=== PATIENT | male | born 1945 | race Caucasian/White ===

== ENCOUNTER 2024-02-18 06:12 | Day surgery (SDC) | payer OTHER, SELFPAY ==
[2024-02-16 08:55] VITALS: BMI 42.1
[2024-02-16 09:30] LABS: % Basophils 1.1 % (0-2); % Eosinophils 7.6 % (0-6); % Immature Granulocytes 0.2 % (0-0.5); % Lymphocytes 22.3 % (20.5-51.1); % Neutrophils 58.8 % (42.2-75.2); Absolute Basophils 0.1 10^3/uL (0-0.2); Absolute Eosinophils 0.5 10^3/uL (0-0.7); Absolute Lymphocytes 1.4 10^3/uL (1.2-3.4); Absolute Monocytes 0.6 10^3/uL (0.1-0.6); Absolute Neutrophils 3.8 10^3/uL (1.4-6.5); Hemoglobin 12.8 g/dL (13.0-18.0); Mean Corp Hgb Conc. 33.7 g/dL (33.0-37.0); Mean Corpuscular Hgb 31.9 pg (27.0-31.0); Mean Corpuscular Volume 94.8 fL (80.0-94.0); Mean Platelet Volume 12.7 fL (7.4-10.4); Nucleated Red Blood Cells % 0 % (-); Platelet Count 121 10^3/uL (130-400); Red Blood Cell Count 4.01 10^6/uL (4.70-6.10); Red Cell Dist. Width 13.6 % (11.5-14.5); White Blood Cell Count 6.4 10^3/uL (4.8-10.8)
[2024-02-16 10:48] LABS: ALT (SGPT) 27 U/L (0-50); AST (SGOT) 39 U/L (17-59); Albumin 3.9 g/dl (3.5-5.0); Alkaline Phosphatase 72 U/L (38-126); Blood Urea Nitrogen 21 mg/dl (9-20); Calcium 9.4 mg/dl (8.4-10.2); Carbon Dioxide 30 mmol/L (22-30); Chloride 104 mmol/L (98-107); Estimated Creatinine Clearance 80 ml/min; Glucose 114 mg/dl (70-99); Sodium 138 mmol/L (135-145); Total Bilirubin 0.8 mg/dl (0.2-1.3); Total Protein 6.7 g/dl (6.3-8.2); eGFR > 60.00
--- NOTE | 2024-02-17 13:59 | CONSULT.STRU ---
Consultation
-
Date/Time Consultation Requested: 02/18/2024
Date/Time Consultation Performed: 02/18/2024
Requesting Provider: Terrence Guerra MD
Performing Provider: LESTER John
Reason for Consultation: /TAVR
Patient History
Physicians
Family Physician: Moreno Nash MD
Outpatient Membership Sales Manager: Melquiades Ortega MD
Primary Membership Sales Manager: Melquiades Ortega MD
History of Present Illness
Mr. Bruno is a very pleasant active 79 yom that presents to the catheterization lab for coronary assessment prior to AVR. His cath from 12/2020 confirmed presence of moderate mLAD disease stenosis with mild to moderate disease elsewhere. Patient
states he does get substernal CP and SOB with exertion. Cath from today (02/18/2024) shows Single-vessel CAD involving the LAD, Both IFR and FFR were in the flow-limiting range prompting placement of a 3.5 x 12 mid LAD stent within the remotely
stented segment. His echocardiogram from 12/14/2023 is notable for EF 55-60%, moderate MAC, trivial-mild MR, AV P/M 66/39, BRITANY 0.9, pk shadi 3.87, RVSP 33, trivial TR. Discussed the pathophysiology and treatment options of aortic stenosis including SAVR
and TAVR. Explained the evaluation process comprising of CT scan, CT surgical consult, dental clearance and a heart team discussion. TAVR booklet, prescriptions, appointments and contact information given to patient. Allowed for and answered
questions at bedside.
Past Medical History
Past Medical History: Arrhythmias (Persistent afib (C2V: 3)), HTN, FL, Valvular Disease (Aortic stenosis) and Other (venous insufficiency, hyperlipidemia, LLE superficial thrombus)
angioplasty/stent to LAD following FL ( 12/2008), LLE fracture complicated by DVT (2001)
Past Surgical History
Past Surgical History: Orthopedic ((L) THR, bilateral TKR) and Other (vasectomy, bilateral cataract extractins)
Dental History
[facility] (patient states he is utd--dental clearance form faxed)
Family History
Mother: at Age (81) and Cause of (valve disease)
Father: at Age (93)
Social History
Alcohol: Daily (up to 6 beers daily )
Drug: None
Tobacco: Former Smoker
Personal:
Living: Alone
Employment: Employed (works Maintenance at [employer])
Allergies
Allergy/AdvReac Type Severity Reaction Status Date / Time
No Known Allergies Allergy Unverified 02/15/24 08:25
Home Medications
�Medication �Instructions �Recorded �Confirmed �Type
cholecalciferol (vitamin D3) 25 25 mcg PO BID 02/15/24 02/15/24 History
mcg (1,000 unit) tablet (Vitamin
D3)
isosorbide mononitrate 60 mg 60 mg PO DAILY 02/15/24 02/15/24 History
tablet,extended release 24 hr
multivitamin 1 tab PO DAILY 02/15/24 02/15/24 History
nadolol 20 mg tablet 30 mg PO BID 02/15/24 02/15/24 History
rivaroxaban 20 mg tablet (Xarelto) 20 mg PO QPM 02/15/24 02/15/24 History
rosuvastatin 20 mg tablet 20 mg PO DAILY 02/15/24 02/15/24 History
STS%
STS %: 4.53
Review of Systems
-
History Source: Patient
General: Reports Weight Gain and Fatigue
HEENT: Reports No Symptoms
Respiratory: Reports SOB and OCONNOR
Cardiac: Reports Chest Pain
Abdomen/GI: Reports No Symptoms
: Reports No Symptoms
Musculoskeletal: Reports No Symptoms
Skin: Reports No Symptoms
Neurological: Reports No Symptoms
Vascular: Reports No Symptoms
Physical Exam
Vital Signs
Actual Weight 125.6 kg 02/16/24 08:55
Body Mass Index (BMI) 42.1 02/16/24 08:55
Labs
02/16/24 09:03
02/16/24 09:03
Diagnostic Studies
Echocardiogram 12/14/2023:
CONCLUSIONS
1. Left atrial enlargement
2. Severe aortic stenosis
3. Normal left and right ventricular systolic function
4. Mild pulmonary hypertension
Aortic Valve
Focally thickened/calcified and deformed aortic valve that exhibits restricted
opening. Peak aortic valve gradient 66 mmHg with a mean gradient of 39 mmHg.
The calculated aortic valve area by continuity 0.9 cm2. These findings are
consistent with severe stenosis.
EKG 02/16/2024:
Blood Pressure : / mmHG
Vent. Rate : 065 BPM Atrial Rate : 000 BPM
P-R Int : 000 ms QRS Dur : 092 ms
QT Int : 402 ms P-R-T Axes : 000 024 044 degrees
QTc Int : 418 ms
ATRIAL FIBRILLATION
ABNORMAL ECG
Cath 02/18/2024:
CONCLUSIONS
1:�Known severe aortic stenosis noninvasively evaluated
2:�Single-vessel CAD involving the LAD as described above. Both IFR and FFR were in the flow-limiting range prompting us to place a 3.5 x 12 mid LAD stent within the remotely stented segment
3. We will treat with triple therapy for 1 week (Xarelto 15 mg/Plavix 75 mg/aspirin 81 mg) then stop aspirin and treat for 12 months with Xarelto 15 mg/Plavix 75 mg. After 1 year the Plavix should be transition to low-dose aspirin and the Xarelto
dose can be increased back to 20 mg daily
4. Continue workup for TAVR
STS risk score:
Clinical Summary
Planned Surgery: Isolated AVR, Elective, First cardiovascular surgery
Demographics: 78 year old, White, male, 126kg, 180cm, BMI: 38.9 kg/m�
Insuranc/Payor: Medicare
Lab Values: Creatinine: 1 mg/dL, Hematocrit: 38%, WBC Count: 6.4 10�/�L, Platelet Count: 930715 cells/�L
Substance Abuse: Former smoker, Alcohol use: >=8 drinks/week
Risk Factors / Comorbidities: Hypertension
Pulmonary RF: Unknown CLD
Cardiac Status: Chronic heart failure, NYHA Class II, Ejection Fraction = 55%
Coronary Artery Disease: 1 vessel diseased, Stable Angina, FL: > 21 Days
Valve Disease: Aortic Stenosis, Trivial/Trace AR, Trivial/Trace MR, Trivial/Trace TR
Arrhythmia: Recent A-fib, Persistent
Prev. Cardiac Interv: Previous PCI: At this facility, <=6 hour
Exam
General: Well Developed
HEENT: Moist Mucous Membranes and Atraumatic
Neck: Trachea Midline
Respiratory: Clear
Cardiac: Murmur (III/)
GI: Soft and Non Tender
Rectal: Deferred by Provider
Skin: Warm and Dry
Neuro: Awake, Alert, Oriented and AO x 3
Extremities: Lower Level Edema
Psych: Calm
Assessment / Plan
-
Aortic Stenosis
Continue TAVR evaluation.
Trend creatinine after contrast administration (rx given)
TAVR CT scan (03/04)
CT surgical consult (TT 03/11)
Frailty testing and KCCQ12 at consult
Will hold Xarelto 48 before TAVR and add aspirin while held. Once Xarelto resumed will d/c aspirin
Continue plavix
Dental clearance ([facility])
Heart team discussion
CAD-MATILDA to LAD
Continue medication regimen (plavix added)
Data Reviewed
-
EKG: Tracing Personally Visualized and interpreted (A-fib) and Report Reviewed by me
Cesspool Cleaner: Report Reviewed by me and Discussed with Physician
Echo: Report Reviewed by me and Discussed with Physician
Labs: Labs Reviewed by me
Old Records: Reviewed (Dr. Guerra's office note)
Scores
[id number] Score for Afib Stroke Risk
Age in Years (65=0, 65-74=1, >/=75=2): > or = 75
Sex (Female=+1): Male
Congestive Heart Failure History (Yes=+1): No
Hypertension History (Yes=+1): Yes
Stroke/TIA/Thromboembolism History (Yes=+2): No
Vascular Disease History (Yes=+1): No
Diabetes Mellitus (Yes=+1): No
Score: 3
Anticoagulation Recommendations: Recommend anticoagulation (as validated in nonvalvular fib)
GAVIN Score
Points and Risk percentage for GAVIN
Score Risk at 14 days -
all cause mortality, new or recurrent FL,
or severe recurrent ischemia requiring
urgent revascularization
0 5%
1 5%
2 8%
3 13%
4 20%
5 26%
6 41%
7 41%
Scores ranging from 0-2 constitute a low risk.
Scores from 3-5 are considered intermediate risk.
A score of 6 or 7 indicates high risk.
Early invasive management, such as cardiac angiography and revascularization, is recommended for patients presenting with a GAVIN risk score greater than or equal to 3. Patients with a GAVIN risk score of 0 to 2 should be managed medically.
[2024-02-18] VITALS (15 sets, daily range): BP systolic 122–167; BP diastolic 67–121
[2024-02-18 07:52] LABS: ACT-LR - POC 258 Seconds (116-155)
[2024-02-18 08:09] LABS: ACT-LR - POC 316 Seconds (116-155)
--- NOTE | 2024-02-18 08:38 | ITS.CL.CATH ---
Meter/Relay Craftsman - Catheterization
Cardiac Catheterization
Procedure Report:
CARDIAC CATHETERIZATION REPORT
Date of Procedure: 02/18/2024
Referring: Melquiades Ortega MD
Indication: Severe aortic stenosis with exertional angina
�
HEMODYNAMIC DATA
AO: 121/74
LV: Not done
�
LEFT VENTRICULOGRAPHY: Not performed as we chose not to cross the severely stenotic aortic valve
�
CORONARY ANGIOGRAPHY
Dominance: Right
Left Main: Normal
LAD: Eccentric 70% stenosis in the mid LAD within the remotely stented segment. The remainder of the LAD proper has trivial luminal disease. The large second diagonal branch originates from within the stented segment and has 60% ostial stenosis
Circumflex: Mild luminal irregularities
RCA: Large dominant vessel with mild luminal irregularities
FloWire assessment: At the conclusion of the diagnostic study we proceeded with FloWire evaluation of the mid LAD lesion within the previously placed stent. Heparin was used for anticoagulation. A 6 Macedonian EBU 3.75 guide catheter was used. A
[place] wire was advanced into the distal LAD and IFR measurements were 0.88, 0.90, and 0.89. These are technically consistent with flow-limiting disease but are equivocal prompting us to perform FFR. Intravenous adenosine was administered at 140
mcg/kg/min. The resting FFR prior to adenosine was 0.88. Following adenosine, the FFR fell to 0.79. This is consistent with flow-limiting disease. Accordingly, decision was made to stent the lesion.
Angioplasty: A 3.5 x 12 Delfin frontier MATILDA stent was deployed across the lesion taking care not to involve the origin of the second diagonal branch. Deployment of the stent at 16 alan for 30 seconds was followed by postdilatation with a 3.5 x 8 NC
Euphora to 17 alan. The final angiographic result was outstanding. There were no procedural complications.
�
Closure Device: None-the procedure was performed via the right radial artery.
�
Radiation (mGy): 471
DAP (cm2.Gy): 30.0
Fluoroscopy time: 6.6 minutes
�
CONCLUSIONS
1:�Known severe aortic stenosis noninvasively evaluated
2:�Single-vessel CAD involving the LAD as described above. Both IFR and FFR were in the flow-limiting range prompting us to place a 3.5 x 12 mid LAD stent within the remotely stented segment
3. We will treat with triple therapy for 1 week (Xarelto 15 mg/Plavix 75 mg/aspirin 81 mg) then stop aspirin and treat for 12 months with Xarelto 15 mg/Plavix 75 mg. After 1 year the Plavix should be transition to low-dose aspirin and the Xarelto
dose can be increased back to 20 mg daily
4. Continue workup for TAVR are
�
�
Copy to: Melquiades Ortega MD, Moreno Nash MD
�
Terrence Guerra MD, [facility], [facility]
--- NOTE | 2024-02-18 12:28 | W.PN.UPDATE ---
Update Note
Progress Note Update
79 yo WM s/p PCI LAD (same day). He feels good, no cp, sob, eileen diet, voiding, amb w/o dizziness, EKG Afib with SVR no ST changes, R rad site TR band in place, no HT. He will be on triple therapy ASA/Plavix/Xarelto 15mg for 1 week then stop ASA. He
will decrease Xarelto to 15mg while on Plavix. Cardiac rehab c/s. 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 He will continue o/p w/u for TAVR.
He has f/u apt with Dr. Ortega in 2 weeks. He is for d/c home after 1pm if rad site stable.
CONCLUSIONS
1:�Known severe aortic stenosis noninvasively evaluated
2:�Single-vessel CAD involving the LAD as described above. Both IFR and FFR were in the flow-limiting range prompting us to place a 3.5 x 12 mid LAD stent within the remotely stented segment
3. We will treat with triple therapy for 1 week (Xarelto 15 mg/Plavix 75 mg/aspirin 81 mg) then stop aspirin and treat for 12 months with Xarelto 15 mg/Plavix 75 mg. After 1 year the Plavix should be transition to low-dose aspirin and the Xarelto
dose can be increased back to 20 mg daily
4. Continue workup for TAVR are
�
�
Copy to: Melquiades Ortega MD, Moreno Nash MD
== END 2024-02-18 14:15 | disposition home or self-care (01) ==
LOC: CATH 06:12
PROVIDERS: ATTENDING PHYSICIAN Internal Medicine Cardiovascular Disease; FAMILY PHYSICIAN Internal Medicine; OTHER PHYSICIAN Internal Medicine Cardiovascular Disease
DX: I25.10 Atherosclerotic heart disease of native coronary artery without angina pectoris (principal); I35.0 Nonrheumatic aortic (valve) stenosis; Z79.01 Long term (current) use of anticoagulants; Z79.02 Long term (current) use of antithrombotics/antiplatelets; Z79.82 Long term (current) use of aspirin; I11.0 Hypertensive heart disease with heart failure; E78.5 Hyperlipidemia, unspecified; I48.19 Other persistent atrial fibrillation; I25.2 Old myocardial infarction; I87.2 Venous insufficiency (chronic) (peripheral); Z96.653 Presence of artificial knee joint, bilateral; Z87.891 Personal history of nicotine dependence; E66.01 Morbid (severe) obesity due to excess calories; Z68.41 Body mass index [BMI] 40.0-44.9, adult; M19.90 Unspecified osteoarthritis, unspecified site; Z95.5 Presence of coronary angioplasty implant and graft
CPT/HCPCS: 36415; 80053; 85025; 85347; 93005; 93458; 93571; C1725; C1769; C1874; C1894; C9600; J0153; Q9967

== ENCOUNTER → 2024-03-04 08:46 | Outpatient (REF) | payer OTHER, SELFPAY | LOC: RAD 08:46 | PROVIDERS: ATTENDING PHYSICIAN Nurse Practitioner Acute Care; FAMILY PHYSICIAN Internal Medicine; REFERRING PHYSICIAN Internal Medicine Cardiovascular Disease | DX: I35.0 Nonrheumatic aortic (valve) stenosis (principal) | CPT/HCPCS: 74174; 75572; Q9967 ==

== ENCOUNTER 2024-03-31 06:53 | Inpatient (IN) | payer OTHER, SELFPAY ==
[2024-03-23 08:52] VITALS: BMI 39.9
--- NOTE | 2024-03-23 09:53 | CM ---
Met with Mr. Bruno is Anika. He states prior to admission he resides with his daughter, Mirlande in a spilt level home with four steps to enter. He states he has thirteen steps to get to the bedroom/full bathroom. He states prior to admission he
was independent with ambulation and adls. He states he does not have any DME in the home. He states he has a prescription plan and uses [facility]. He states his daughter will be home the weekend to assist in his care if needed. The
discharge plan is to return home with his daughter and a home visit by the Cardiothoracic Transitional Care Nurse when medically stable.
We reviewed pre-op and post-op routines. We reviewed the shower instructions. He has the soap, written instructions and the TAVR Educational Booklet. We also reviewed restrictions including driving and lifting restrictions. We also discussed a
home visit by the Cardiothoracic Transitional Care Nurse. He is agreeable to a home visit . The plan is for TAVR on , March 31, 2024.
[2024-03-23 11:11] LABS: % Basophils 1.2 % (0-2); % Eosinophils 8.3 % (0-6); % Immature Granulocytes 0.3 % (0-0.5); % Lymphocytes 19.8 % (20.5-51.1); % Monocytes 9.6 % (1.7-9.3); % Neutrophils 60.8 % (42.2-75.2); Absolute Basophils 0.1 10^3/uL (0-0.2); Absolute Eosinophils 0.5 10^3/uL (0-0.7); Absolute Lymphocytes 1.2 10^3/uL (1.2-3.4); Absolute Monocytes 0.6 10^3/uL (0.1-0.6); Absolute Neutrophils 3.6 10^3/uL (1.4-6.5); Hematocrit 41.1 % (39.0-52.0); Hemoglobin 13.9 g/dL (13.0-18.0); Mean Corp Hgb Conc. 33.8 g/dL (33.0-37.0); Mean Corpuscular Hgb 31.6 pg (27.0-31.0); Mean Corpuscular Volume 93.4 fL (80.0-94.0); Mean Platelet Volume 13.8 fL (7.4-10.4); Nucleated Red Blood Cells % 0 % (-); Platelet Count 119 10^3/uL (130-400); Red Cell Dist. Width 13.6 % (11.5-14.5); White Blood Cell Count 5.9 10^3/uL (4.8-10.8)
[2024-03-23 11:14] LABS: Urine Albumin Trace (Neg - Trace); Urine Bilirubin Negative (Negative); Urine Character Clear (Clear); Urine Color Yellow; Urine Glucose Negative (Negative); Urine Ketone Negative (Negative); Urine Leukocyte Negative (Negative); Urine Nitrite Negative (Negative); Urine Occult Blood Negative (Negative); Urine Urobilinogen Negative (Neg - 1+)
[2024-03-23 11:37] LABS: ALT (SGPT) 26 U/L (0-50); AST (SGOT) 43 U/L (17-59); Albumin 4.4 g/dl (3.5-5.0); Alkaline Phosphatase 100 U/L (38-126); Blood Urea Nitrogen 18 mg/dl (9-20); Calcium 9.9 mg/dl (8.4-10.2); Carbon Dioxide 29 mmol/L (22-30); Chloride 103 mmol/L (98-107); Direct Bilirubin 0.3 mg/dl (0.0-0.4); Estimated Creatinine Clearance 89 ml/min; Glucose 104 mg/dl (70-99); Sodium 143 mmol/L (135-145); Total Protein 7.5 g/dl (6.3-8.2); eGFR > 60.00
[2024-03-23 11:44] LABS: Glycohemoglobin (HgbA1c) 5.8 % (4.0-5.6)
[2024-03-31] VITALS (20 sets, daily range): BP systolic 105–161; BP diastolic 41–85; BMI 37.5
--- NOTE | 2024-03-31 09:34 | ITS.CL.TAVR ---
Tire Adjuster - TAVR Report
TAVR PRocedure
Procedure Report:
Procedure Report:
TRANSCATHETER AORTIC VALVE REPLACEMENT REPORT
Date: 03/31/2024
Referring physician: Dr. Melquiades Ortega
Preop diagnosis: severe aortic stenosis
Postop diagnosis: severe aortic stenosis s/p transfemoral TAVR
Procedure: Transcatheter aortic valve replacement (TAVR) using a #26 Burrell TANVIR S3 Ultra.
Operators: Krzysztof Padilla MD, PhD (cardiology), Sagar Kline MD (CT surgery)
Findings: Severely calcified and stenotic aortic valve
Anesthesia: Conscious sedation was provided by the anesthesia staff
Estimated blood loss: Negligible
Complications: None
Condition: Stable
Procedure:
The patient was brought to the cardiac electroplating laborer after consent and was prepped and draped in standard sterile fashion. Conscious sedation was provided by the anesthesia staff. After a 'Time Out,' the left common femoral artery and the left common
vein were accessed using a modified Seldinger technique with a micropuncture kit under ultrasound guidance. A 6 Stateless sheath was placed in the left femoral vein. Angiography performed through the micropuncture sheath confirmed satisfactory
arterial placement in the left common femoral artery. The micropuncture sheath was replaced with a 6Fr sheath in the left DISCOUNT CLERK. A temporary pacing wire was advanced through the left femoral vein and into the right ventricle. The pacemaker
demonstrated good capture and was set to back up. A 5Fr pigtail catheter was advanced through the left femoral sheath and seated in the right coronary cusp. Angiography confirmed co-planar angles. Next, the right common femoral artery was accessed
using a modified Seldinger technique with a micropuncture kit under ultrasound guidance. Angiography through the micropuncture kit confirmed satisfactory arterial placement in the right common femoral artery. The right DISCOUNT CLERK was dilated with an 8FR
dilator and preclosed with two Perc-Close devices. An 8Fr sheath was placed in the RCFA.
An AL-1 catheter was advanced through the 8Fr sheath, the J wire was exchanged for an Amplatz Extrastiff wire and the catheter and the 8 Fr sheath was removed. The 14 Fr Burrell E-sheath was inserted over the wire and into the descending aorta.
Heparin 89935 units was given. The TANVIR S3 was prepared on the back table. Orientation was confirmed by both physicians. The AL-1 catheter was re-advanced through the E-sheath to the level of the ascending aorta. The Extrastiff wire was
removed and a soft tip straight wire was advanced through the AL-1. The straight tip wire was used to cross the aortic valve and the catheter was advanced into the left ventricle. The straight wire was removed and an Amplatz Extrastiff wire with
curved proximal end was advanced through the catheter and into the left ventricle. The wire was seated in the apex and the catheter was removed. ACT was checked and confirmed to be > 250 seconds.
The valve was advanced over the Extrastiff wire and into the descending aorta. The balloon was withdrawn and the valve was mounted on the balloon. The valve was advanced over the aortic arch and into the aortic valve annulus. The pusher device
was withdrawn to allow for balloon expansion. Low volume aortography confirmed good position of the valve. The valve was deployed during rapid ventricular pacing. Echocardiography and aortography confirmed a good result with mild wire-associated
aortic valve insufficiency and a 5 mmHg mean gradient with trace AI. The valve deployment system was removed. The Burrell E sheath was then removed and hemostasis obtained with the two Perc-Close sutures. Final angiography demonstrated no evidence
of ileofemoral dissection/perforation and good runoff below the common femoral artery. The pacemaker and the pigtail catheter were removed. The left femoral artery sheath was removed using a 6Fr Angioseal. The left femoral venous sheath was removed
and manual pressure was applied with excellent hemostasis.
Radiation
Dose (mGy): 434.03
DAP (cm2.Gy): 43.0988
Fluoroscopy time (minutes): 9.7
Conclusions:
1. Successful placement of #26 Tanvir S3 Ultra aortic valve via right transfemoral approach with no acute complications
2. Acute on chronic heart failure with elevated filling pressures LVEDP = 27 mmHg
Signed: Krzysztof Padilla MD, PhD
Copy to: Dr. Melquiades Ortega MD (biomass plant technician); Dr. Moreno Nash (PCP)
[2024-03-31] MEDS: ANCEF 15 MG IV (09:47)
[2024-03-31 10:50] LABS: ACT-LR - POC 313 Seconds (116-155)
--- NOTE | 2024-03-31 11:16 | W.CVOR.SURPR ---
CVOR Surgeon Immed Pre Op
-
I have examined this patient prior to performance of the scheduled procedure.
The patient's condition is unchanged from the time of the dictated/written History and
Physical and the patient is able to undergo the scheduled procedure.
--- NOTE | 2024-03-31 11:17 | W.IMMPOSTOP ---
Surgical Immed Post Op Note
-
[id number]
STRUCTURAL HEART PROCEDURE NOTE:
Preoperative Dx:
Severe aortic stenosis (P/M: 66/39, BRITANY 0.9, Solar Sales Representative And Assessor 3.87)
CAD s/p recent PCI/MATILDA
VT
Persistent AF on Xarelto
HTN/HLD
Venous insufficiency w/ Hx of LLE DVT following LLE Fx
Postoperative Dx:
Same
Tousc-ey-pzktpcr, combined systolic & diastolic CHF w/ elevated LVEDP @ 27mmHg
Procedures:
1) L CFV access w/ U/S and fluoroscopic guidance, micropuncture technique, 6Fr sheath placement
2) L CURB MACHINE OPERATOR access w/ tactile, U/S, and fluoroscopic guidance, micropuncture technique, limited angiography, 6Fr sheath placement
3) Placement of temporary RV pacing wire, threshold testing
4) Placement of pigtail catheter in RCC w/ limited angiography & confirmation of co-planar angle
5) R CURB MACHINE OPERATOR access w/ tactile, U/S, and fluoroscopic guidance, micropuncture technique, limited angiography, 6Fr sheath placement
6) 8Fr dilator placement; Perclose placement x 2; 8Fr sheath placement
7) Placement of Burrell E-sheath via R CURB MACHINE OPERATOR
8) Wire purchase across stenotic AV (AL-1, soft-tip straight, LVEDP monitoring, extrastiff)
9) R TF TAVR w/ placement of 26mm ALLISON 3
10) Completion aortography
11) Completion TTE (mean gradient 5mmHg, trace AI)
12) Removal of [id number] & Burrell E-sheath w/ R CURB MACHINE OPERATOR mgmt w/ perclose sutures x 2, manual pressure
13) Completion R ileofemoral angiography
14) Removal of L CURB MACHINE OPERATOR 6Fr sheath w/ mgmt w/ 6Fr angioseal; manual pressure
15) Removal of L CFV 6Fr sheath w/ mgmt w/ manual pressure
Ict Sales Representative:
Dr. Michael Padilla
Cardiac Surgeon:
Dr. Sagar Kline
Anesthesia:
MAC & local to B/L groins
Complications:
None; new BBB w/ wire-purchase across stenotic AV (no pauses/bradycardia)
Implants:
Perclose sutures x 2
6Fr angioseal x 1
Burrell Lifesicences ALLISON 3; 26mm; SN [id number]
Cath Data:
Start: 1019hrs, Deploy: 1053hrs, End: 1114hrs
FT: 9.7min, mGy: 434.03, DAP: 43.0988, Contrast: 51
Post-TTE: mean gradient 5mmHg, trace AI
Condition:
Stable/guarded to recovery
--- NOTE | 2024-03-31 11:19 | W.PN.UPDATE ---
Update Note
Progress Note Update
Reviewed Mr. Bruno with the heart team in the preTAVR SDM meeting and confirmed a 26 mm S3 via right transfemoral access. Patient will resume Xarelto and Plavix (a-fib/recent MATILDA) post TAVR. LVEDP 27mmHg. #26mm S3 (serial# [id number]) successfully
deployed via right transfemoral access. Post implant MG 6mmHg.
--- NOTE | 2024-03-31 13:33 | CM ---
Patient in OR today for planned TAVR procedure.
DC plan anticipated for home w/ CT Transitional Care RN.
CM to follow for DC planning needs.
--- NOTE | 2024-03-31 14:01 | PTCARENOTE ---
Patient resting comfortable. Right groin site bleeding from the skin tear. Groin site replaced. Bear hugger needed. Oral temp 94.0, skin feels warm and dry. Patient voided 175 with urinal. AO x3 drossy but awakens easily. HR 30-50, A-FIB, with 2.37
pauses, irregular. Pedal pulses with dppleer, left leg +2 edema. Skin tears under Tegaderm, b/l groin sites, VSS
--- NOTE | 2024-03-31 14:19 | PTCARENOTE ---
Shara carson applied, temp orally 94.0, skin feels warm and dry
--- NOTE | 2024-03-31 16:36 | PTCARENOTE ---
Patient out of bed in the chair ,walked to the bathroom voided, ordering his dinner
--- NOTE | 2024-04-01 00:17 | PTCARENOTE ---
B/L groin dressings unchanged from shift change. drainage noted on dressings- but w/ the skin tears underneath Tegaderm- dressings where maintained. b/l groins soft- pedals + with Doppler and weak to palpation. Neuro checks within normal limits.
ambulating the room as self PC-C Ricaa placed BB on hold for this evening with HR in the 50s and bps on the softer side. slow afib on the monitor.
[2024-04-01 03:03] VITALS: BMI 37.2
[2024-04-01 03:06] VITALS: BP 154/74
[2024-04-01 03:14] VITALS: BP 132/96
[2024-04-01 04:01] LABS: Blood Urea Nitrogen 17 mg/dl (9-20); Calcium 8.9 mg/dl (8.4-10.2); Carbon Dioxide 26 mmol/L (22-30); Chloride 105 mmol/L (98-107); Estimated Creatinine Clearance 102 ml/min; Glucose 91 mg/dl (70-99); Magnesium 1.7 mg/dl (1.6-2.3); Potassium 4.5 mmol/L (3.5-5.1); Sodium 142 mmol/L (135-145); eGFR > 60.00
[2024-04-01 04:05] LABS: Hemoglobin 12.6 g/dL (13.0-18.0); Mean Corp Hgb Conc. 34.1 g/dL (33.0-37.0); Mean Corpuscular Hgb 31.5 pg (27.0-31.0); Mean Corpuscular Volume 92.5 fL (80.0-94.0); Red Cell Dist. Width 13.6 % (11.5-14.5); White Blood Cell Count 7.8 10^3/uL (4.8-10.8)
[2024-04-01 05:23] LABS: Mean Platelet Volume 12.7 fL (7.4-10.4); Platelet Count 85 10^3/uL (130-400)
--- NOTE | 2024-04-01 06:15 | W.PN.CT ---
Addendum entered and electronically signed by Sagar Kline MD 04/01/24 09:06:
I saw and examined the patient.
The PA's note was reviewed and I agree with the note.
Comment:
Doing well status post right transfemoral TAVR placement of 26 mm ALLISON 3 valve
No overnight events.
Continue home medications including Plavix/Xarelto
Check echocardiogram today
Hopeful discharge later today
Original Note:
Today's Communication / Plan
-
-pod #1
-no issues overnight
-held Nadolol last night d/t hr 40s-50s- resume today
-chronic a-fib. Intraop BBB resolved. No meme or pauses
-Echo today
-current meds (Plavix, Xarelto, Nadolol, Crestor, Imdur)
-encourage IS, OOB
-possible d/c
Assessment / Plan
-
- Severe symptomatic - s/p R TF TAVR w/ placement of 26mm ALLISON 3 on 03/31/24, pod #1
- Dtxfc-zl-pqugqai, combined systolic & diastolic CHF w/ elevated LVEDP @ 27mmHg
- New BBB w/ wire-purchase across stenotic AV (no pauses/bradycardia)- resolved
- Post-TTE: mean gradient 5mmHg, trace AI
- CAD, s/p recent LAD PCI/MATILDA 02/18/24- on Plavix and Xarelto at home
- Hx MA
- Persistent AF -on Xarelto
- HTN/HLD
- Class 2 obesity (BMI 37)
- Venous insufficiency w/ Hx of LLE DVT following LLE Fx in 2001
- L THR 2013
- b/l cataract repair
- Former tobacco, quit 20 yrs ago
Discussed patient care with: Nursing and Care Team
Subjective
Procedure
- s/p R TF TAVR w/ placement of 26mm ALLISON 3 on 03/31/24
-
Date of Service: April 01, 2024
Objective Data
-
Lab Results
03/23/24 08:43
03/23/24 08:43
PT 21.0 Sec (11.4-14.6) H 03/23/24 08:43
INR 1.80 03/23/24 08:43
APTT 41.0 Sec (23.4-35.0) H 03/23/24 08:43
Vital Signs
Vital Signs
Temp Pulse Resp BP Pulse Ox
98.1 F 76 18 132/41 99
03/31/24 22:40 03/31/24 22:17 03/31/24 22:40 03/31/24 22:17 03/31/24 22:40
CT Intake/Output/Weight
03/31/24 03/31/24 04/01/24
06:59 18:59 06:59
Intake Total 1150 / 1150
Output Total 275 / 275
Balance 875 / 875
SaO2: 99
Physical Exam
-
General: Awake and AOx3
Cardiovascular: Regular rate & rhythm, No Murmurs and No Rub
Respiratory: Decreased Breath Sounds
Incision: Other (groins are cdi, soft, nontender, no hematoma b/l)
Extremities: Edema +1 (chronic with skin discoloration, wears compression socks at home. +1 DPs b/l)
Data Reviewed
-
Lab Results: Results Reviewed
Medications: Active Meds Reviewed
Chest X-Ray: Report Reviewed and Image Reviewed
ECG: Report Reviewed and Image Reviewed
[2024-04-01 06:42] VITALS: BP 147/72
--- NOTE | 2024-04-01 08:00 | PTCARENOTE ---
Resumed care of patient from prev RN. walking rounds completed. groin sites unchanged from prev corporate director talent assessment. AFIB on monitor HR 80s. weak pulses trace edema. ambulating the room as self. BRP. tolerating diet. Neuro intact. getting echo bedside
and hopeful d/c this AM. Will continue to monitor.
[2024-04-01] MEDS: CRESTOR 20 MG PO (09:55)
[2024-04-01] MEDS: CORGARD 30 MG PO (09:55)
[2024-04-01] MEDS: VITAMIN D3 (cholecalciferol) 25 MCG PO (09:56)
[2024-04-01] MEDS: PLAVIX 75 MG PO (09:56)
[2024-04-01] MEDS: IMDUR (EXTENDED RELEASE) 60 MG PO (09:56)
[2024-04-01] MEDS: THERAGRAN 1 TABLET PO (09:56)
--- NOTE | 2024-04-01 10:20 | W.PN.CD ---
Today's Communication / Plan
-
home today pending echo
Impression / Plan
-
Mr. Bruno is a 79 year old man with history of severe symptomatic aortic stenosis and Afib on Xarelto, who underwent sucessful transfemoral TAVR with #26 [place] valve 03/31/24 without complication.
# s/p TF TAVR
- recovering well, groins soft and non tender, no events on telemetry, ambulated without issue
- cont. plavix (recent PCI)
- discharge pending TTE today
# CAD s/p PCI to LAD 02/18/24
- cont. plavix
- cont. home statin
- cont. home imdur
# Afib
- cont. Xarelto
- cont. home nadolol
Physical Exam
Vital Signs/Labs
Vital Signs
Temp Pulse Resp BP Pulse Ox
36.8 C 76 18 132/41 97
04/01/24 08:16 03/31/24 22:17 03/31/24 22:40 03/31/24 22:17 04/01/24 08:16
03/31/24 04/01/24 04/02/24
06:59 06:59 06:59
Actual Weight 121 kg
04/01/24 08:35
04/01/24 03:21
PT 21.0 Sec (11.4-14.6) H 03/23/24 08:43
INR 1.80 03/23/24 08:43
APTT 41.0 Sec (23.4-35.0) H 03/23/24 08:43
Magnesium 1.7 mg/dl (1.6-2.3) 04/01/24 03:21
Physical Exam
Constitutional: No acute distress, Comfortable and Confusion
Cardiovascular: Rhythm & rate is regular, Pedal edema is absent, JVD pressure is normal, Systolic murmur absent and Diastolic murmur absent
Respiratory: Respiratory effort normal, Lungs clear to auscul. and Wheeze Absent
Neuro/Psych: Alert, Oriented and AO x 3
Other: Cath Site (soft)
Data Reviewed
-
Date of Service: April 01, 2024
--- NOTE | 2024-04-01 11:15 | CARDSERVLU ---
Echocardiogram with Lumason completed after protocol screening completed. Allergies verified.
Patent IV site:Left arm PC 20 G PC
IV site flushed with 0.9% NaCl pre and post administration.
Diluted bolus method utilized to enhance visualization of ventricular reeves.
Total volume given: __3__ mL
Patient tolerated all procedures well without complications.
--- NOTE | 2024-04-01 11:46 | W.DCSUMMARY ---
Discharge Summary
Discharge Data
Date of Admission: 03/31/24
Date of Discharge: 04/01/24
-
Pending Results: No
Hospital Course
Jovani Bruno is a 79-year-old male with known progressive aortic stenosis. The most recent echocardiogram demonstrated a peak and mean gradient of 66/39 mmHg. Aortic valve area was calculated to be 0.9 cm�. The left heart catheterization
revealed severe aortic valve stenosis with single-vessel coronary artery disease involving the LAD which required PCI and stenting. Patient reports symptoms of shortness of breath that come on even at rest. He feels symptoms have increased over
the past year. He was seen in consultation by attending cardiothoracic surgeon Dr. Demond Velez. He was felt to be an acceptable candidate for TAVR procedure and was scheduled to be admitted electively.
On the morning of 03/31/2024 Mr. Bruno was admitted to [facility] where later that morning he was brought to the cardiac [facility] where he underwent a right transfemoral TAVR with placement of a 26 mm ALLISON 3 valve. Completion TTE showed
a mean gradient of 5 mmHg and trace AI. He tolerated the procedure well and was returned to the IVU where he remained in hemodynamically stable condition. His first night in the IVU was uneventful and the following morning he was able to ambulate
without difficulty. The following morning his groins were without hematoma and distal pulses palpable bilaterally. He was restarted on all his preoperative medications and able to be discharged home. He will continue taking his Xarelto and
Plavix. Chest x-ray on postoperative day 1 was essentially clear. EKG showed atrial fibrillation at 78. Echocardiogram performed on 04/01/2024 showed normal left ventricular systolic function with ejection fraction of 55 to 60%. The peak and mean
gradients across the [place] ALLISON 3 valve were measured at 23/12 mmHg. There was trace aortic regurgitation. Compared to 03/31/2024 prior TAVR greedy gradients were measured at 9/5 mmHg with trace AR. He was able to be discharged to home.
At discharge his vital signs were as follows blood pressure 127/75, pulse 75 irregular temperature 98.2 O2 sat on room air 98%. Telemetry showed atrial fibrillation.
Discharge labs were as follows white blood cell count 7.8 hemoglobin 12.6 hematocrit 37 platelets 85, sodium 142, potassium 4.5, chloride 105, carbon dioxide 26, BUN 17, creatinine 0.8, glucose 91
He was given a full set of discharge instructions and he will be seen in the office of his pet sitter Dr. Cruz. He was given a follow-up appointment and will also have a echocardiogram performed in 30 days.
Discharge Plan
-
Patient Disposition: Home (Routine Discharge)
Discharge Diagnosis/Procedures: TF TAVR
Condition: Good
Diet: Low Fat, Low Cholesterol and 2 Gram Sodium
Activity: As tolerated and No strenuous activity
Driving Restrictions: No driving for 1 week
Bathing Restrictions: OK to Shower
Others Tests: your 30-day echocardiogram is scheduled for: 05/02/2024 @ 10:20 IN THE [facility] OFFICE
Other Services: Cardiac Rehab
Wound Care: NO lotions, creams, or powders to puncture sites
Specialty Instructions: Weigh Daily- Call MD for wt gain/loss 3 lbs overnight/5 lbs in 1 week
Referrals:
CT Transitional Care Nurse [Outside] (The Cardiothoracic Transitional Care Nurse will call you to set up a visit in 1-2 days.)
Moreno Nash MD [Family Provider] -
Melquiades Ortega MD [Active] - 05/18/24 3:20 pm
Additional Discharge Medication Instructions: Stop aspirin
Continue clopidogrel
Continue xarelto
Prescriptions:
New
acetaminophen [Tylenol Extra Strength] 500 mg tablet
500 mg PO Q4HPRN PRN (Reason: mild pain) Qty: 1 0RF
Continued
nitroglycerin 0.4 mg tablet, sublingual
0.4 mg sublingual [id number] PRN (Reason: chest pain) Qty: 25 5RF
multivitamin Tablet
1 tab PO DAILY Qty: 0 0RF
clopidogrel 75 mg tablet
75 mg PO DAILY Qty: 90 10RF
nadolol 20 mg Tablet
30 mg PO BID Qty: 0 0RF
isosorbide mononitrate 60 mg Tablet Extended Release 24 Hr
60 mg PO DAILY Qty: 0 0RF
rosuvastatin 20 mg Tablet
20 mg PO DAILY Qty: 0 0RF
cholecalciferol (vitamin D3) [Vitamin D3] 25 mcg (1,000 unit) Tablet
25 mcg PO BID Qty: 0 0RF
Xarelto 15 mg tablet
15 mg PO QPM Qty: 90 5RF
Discontinued
aspirin [Aspir-Low] 81 mg Tablet,Delayed Release (Dr/Ec)
81 mg PO DAILY
Discharge Orders:
Discharge Patient (As Directed); Ordered 04/01/24
Ordered By: Hremes Palomares
Care Plan Goals
Care Plan Goals:
Problem: Readiness for enhanced knowledge related to diagnosis and treatment plan
Goal: Understand your diagnosis and treatment plan needs, including medications if applicable.
Instructions: Know your diagnosis, underlying causes and treatment plan options, including medications if applicable. Consult with your health care team to learn about your diagnosis and treatment plan, including medications if applicable.
Discharge Date and Time
Print Language: LATVIAN
[2024-04-01 11:50] VITALS: BP 135/100
[2024-04-01 11:52] VITALS: BP 127/75
--- NOTE | 2024-04-01 13:53 | CM ---
CM following for DC planning needs.
Met w/ patient at bedside. Pt. is anticipating DC today, feels well and offers no concerns or needs at this time.
Reviewed post op MD appointments, CT RN. Pt. aware/ agreeable.
Plan is for home w/ CT Transitional Care RN.
== END 2024-04-01 13:12 | disposition home or self-care (01) | DRG 266 ==
LOC: IVU 06:53
PROVIDERS: Physician Assistant Medical; ADMITTING PHYSICIAN Thoracic Surgery (Cardiothoracic Vascular Surgery); FAMILY PHYSICIAN Internal Medicine; OTHER PHYSICIAN Student in an Organized Health Care Education/Training Program
PROC: 02RF38Z Replacement of Aortic Valve with Zooplastic Tissue, Percutaneous Approach (ICD-10-PCS; 2024-03-31)
DX: I35.0 Nonrheumatic aortic (valve) stenosis (principal); I50.43 Acute on chronic combined systolic (congestive) and diastolic (congestive) heart failure; I48.19 Other persistent atrial fibrillation; I25.10 Atherosclerotic heart disease of native coronary artery without angina pectoris; I11.0 Hypertensive heart disease with heart failure; E78.5 Hyperlipidemia, unspecified; I87.2 Venous insufficiency (chronic) (peripheral); E66.9 Obesity, unspecified; I45.4 Nonspecific intraventricular block; Z68.37 Body mass index [BMI] 37.0-37.9, adult; I25.2 Old myocardial infarction; Z95.5 Presence of coronary angioplasty implant and graft; Z86.718 Personal history of other venous thrombosis and embolism; Z87.891 Personal history of nicotine dependence; Z79.01 Long term (current) use of anticoagulants; Z79.02 Long term (current) use of antithrombotics/antiplatelets
CPT/HCPCS: 93308; 33361; 36415; 71045; 71046; 80048; 80053; 81003; 82248; 83036; 83735; 85025; 85027; 85347; 85610; 85730; 86850; 86900; 86901; 86920; 87070; 93005; 93307; 93321; 93325; C1760; C1769; C1894; Q9957; Q9967